=== PATIENT | male | born 1995 | race Two or more races ===

== ENCOUNTER 2021-10-29 23:37 | Emergency (ER) | payer MEDICAID, OTHER ==
[~2021-10-29] VITALS: Ht 172.7 cm; Wt 81.8 kg
[2021-10-30] MEDS ORDERED: SODIUM CHLORIDE 0.9% 1,000 ML IV ONE (00:15)
[2021-10-30] MEDS ORDERED: PERTUSS(ACELL),DIPH,TET VAC/PF 0.5 ML SYRINGE IM. ONE (00:15)
[2021-10-30] MEDS ORDERED: LIDOCAINE 1%/EPI 1:100,000 30 ML VIAL SQ ONE (00:15)
[2021-10-30 00:40] LABS: BASOPHILS % (AUTO) 0.3 % (0.0-2.0); HEMATOCRIT 48.1 % (41-53); HEMOGLOBIN 16.5 g/dL (13.5-17.5); LYMPHOCYTES # (AUTO) 3.3 K/uL (1.0-4.8); LYMPHOCYTES % (AUTO) 23.8 % (22.0-44.0); MEAN CORPUSCULAR HEMOGLOBIN 30.2 pg (26.0-34.0); MEAN CORPUSCULAR HGB CONC 34.3 G/dL (31.0-37.0); MEAN CORPUSCULAR VOLUME 88 fL (80-100); MONOCYTES # (AUTO) 0.8 K/uL (0.1-1.0); MONOCYTES % (AUTO) 5.9 % (2.0-9.0); PLATELET COUNT (AUTO) 396 K/uL (150-450); RED BLOOD CELL COUNT(AUTO) 5.46 MIL/uL (4.50-5.90); RED CELL DISTRIBUTION WIDTH 12.6 % (11.5-14.5)
[2021-10-30 00:49] LABS: ANION GAP 6 mmol/L (8-16); CALCIUM, TOTAL 8.7 mg/dL (8.8-10.5); CARBON DIOXIDE 32 mmol/L (22-29); CHLORIDE 103 mmol/L (98-107); CREATININE 0.92 mg/dL (0.60-1.30); GLOMERULAR FILTR. RATE CALC > 60 mL/min (>60); GLUCOSE,RANDOM 92 mg/dL (70-110); POTASSIUM 3.3 mmol/L (3.5-5.1); SODIUM SERUM 141 mmol/L (136-145); UREA NITROGEN, BLOOD 12 mg/dL (7-18)
[2021-10-30 00:56] LABS: ALANINE AMINOTRANSFERASE 47 U/L (12-78); ALBUMIN 4.4 g/dL (3.4-5.0); ALKALINE PHOSPHATASE 79 U/L (46-116); ASPARTATE AMINOTRANSFERASE 31 U/L (15-37); BILIRUBIN,TOTAL 0.3 mg/dL (0.1-1.0); TOTAL PROTEIN, SERUM 8.1 g/dL (6.4-8.2)
[2021-10-30] MEDS ORDERED: CEPH-558 PO (02:27)
[2021-10-30 04:00] VITALS: BP 109/80
== END 2021-10-30 05:31 | disposition home or self-care (01) ==
LOC: EMS 23:38
DX: S01.112A Laceration without foreign body of left eyelid and periocular area, initial encounter (principal); S09.90XA Unspecified injury of head, initial encounter; W18.39XA Other fall on same level, initial encounter; Y93.89 Activity, other specified; Y92.89 Other specified places as the place of occurrence of the external cause; Y99.8 Other external cause status
CPT/HCPCS: 12013; 36415; 70450; 72125; 80053; 85025; 90471; 90715; 96360; 99284; G0480; J3490; J7030

== ENCOUNTER 2021-11-10 14:47 | Emergency (ER) | payer MEDICAID ==
[~2021-11-10] VITALS: Ht 175.3 cm; Wt 84.1 kg
[~2021-11-10 14:47] MED LIST: CEPH-558 PO
[2021-11-10 15:21] VITALS: BP 126/84
== END 2021-11-10 15:27 | disposition home or self-care (01) ==
LOC: EMS 14:49
DX: S01.111D Laceration without foreign body of right eyelid and periocular area, subsequent encounter (principal); Z48.02 Encounter for removal of sutures; W45.8XXD Other foreign body or object entering through skin, subsequent encounter
CPT/HCPCS: 99281; Z7502

== ENCOUNTER 2021-12-02 15:27 | Emergency (ER) | payer MEDICAID ==
[~2021-12-02] VITALS: Ht 172.7 cm; Wt 81.0 kg
[2021-12-02 15:28] VITALS: BP 123/68
[2021-12-02] MEDS ORDERED: BACITRACIN 0.9 GM PACKET OINTMENT TP ONE (16:00)
[2021-12-02] MEDS ORDERED: PERTUSS(ACELL),DIPH,TET VAC/PF 0.5 ML SYRINGE IM. ONE (16:00)
[2021-12-02] MEDS ORDERED: LIDOCAINE 1% 10 ML VIAL SQ ONE (16:00)
== END 2021-12-02 16:51 | disposition home or self-care (01) ==
LOC: EMS 15:29
DX: S61.216A Laceration without foreign body of right little finger without damage to nail, initial encounter (principal); F10.20 Alcohol dependence, uncomplicated; W26.9XXA Contact with unspecified sharp object(s), initial encounter; Y93.89 Activity, other specified; Y92.89 Other specified places as the place of occurrence of the external cause; Y99.8 Other external cause status
CPT/HCPCS: 12001; 90471; 90715; 99283; J3490

== ENCOUNTER 2021-12-14 16:54 | Emergency (ER) | payer MEDICAID ==
[~2021-12-14] VITALS: Ht 172.7 cm; Wt 81.8 kg
[2021-12-14 17:27] VITALS: BP 122/73
== END 2021-12-14 18:01 | disposition home or self-care (01) ==
LOC: EMS 17:00
DX: S61.216D Laceration without foreign body of right little finger without damage to nail, subsequent encounter (principal); X58.XXXD Exposure to other specified factors, subsequent encounter
CPT/HCPCS: 99281; Z7502

== ENCOUNTER 2022-08-15 11:42 | Emergency (ER) | payer MEDICAID, OTHER ==
[~2022-08-15] VITALS: Ht 175.3 cm; Wt 84.5 kg
[2022-08-15] MEDS ORDERED: LIDOCAINE 1% 10 ML VIAL ID ONE (13:00)
[2022-08-15 13:51] VITALS: BP 125/68
== END 2022-08-15 13:52 | disposition home or self-care (01) ==
LOC: EMS 11:46
DX: S71.111A Laceration without foreign body, right thigh, initial encounter (principal); F12.90 Cannabis use, unspecified, uncomplicated; X58.XXXA Exposure to other specified factors, initial encounter; Y93.89 Activity, other specified; Y92.89 Other specified places as the place of occurrence of the external cause; Y99.8 Other external cause status
CPT/HCPCS: 99282; 12002; J3490

== ENCOUNTER 2022-08-24 09:06 | Emergency (ER) | payer OTHER ==
[~2022-08-24] VITALS: Ht 175.3 cm; Wt 81.8 kg
[2022-08-24 09:28] VITALS: BP 121/73
[2022-08-24] MEDS ORDERED: BACITRACIN 0.9 GM PACKET OINTMENT TP ONE (11:00)
== END 2022-08-24 12:58 | disposition home or self-care (01) ==
LOC: EMS 09:32
DX: T14.8XXA Other injury of unspecified body region, initial encounter (principal); F12.90 Cannabis use, unspecified, uncomplicated; Z48.02 Encounter for removal of sutures
CPT/HCPCS: 99281; Z7502; Z7610

== ENCOUNTER 2023-08-23 11:55 | Emergency (ER) | payer OTHER ==
[~2023-08-23] VITALS: Ht 175.3 cm; Wt 93.2 kg
[2023-08-23 12:06] VITALS: TEMP 98.3
[2023-08-23] MEDS ORDERED: IBUP-1554 PO (14:54)
[2023-08-23] MEDS ORDERED: ACET-2080 PO (14:54)
[2023-08-23] MEDS: GENTAMICIN SULFATE 0.3% OPHTHALMIC SOLUTION 5 ML OU ONE (15:12)
[2023-08-23 15:20] VITALS: BP 121/70; PULSE 85; RESP 16
== END 2023-08-23 15:23 | disposition home or self-care (01) ==
LOC: EMS 11:55
DX: H10.9 Unspecified conjunctivitis (principal); F12.90 Cannabis use, unspecified, uncomplicated
CPT/HCPCS: 99283

== ENCOUNTER 2025-05-08 17:30 | Emergency (ER) | payer OTHER ==
[~2025-05-08] VITALS: Ht 175.3 cm; Wt 95.5 kg
[~2025-05-08 17:30] MED LIST changes: +ACET-2080 PO; -CEPH-558 PO; +IBUP-1554 PO
[2025-05-08 18:53] LABS: APPEARANCE,URINE CLEAR (CLEAR); GLUCOSE, URINE (UA) NEGATIVE (NEGATIVE); LEUKOCYTE ESTERASE ,URINE TRACE (NEGATIVE); NITRATE,URINE NEGATIVE (NEGATIVE); OCCULT BLOOD,URINE LARGE (NEGATIVE); SPECIFIC GRAVITIY, URINE 1.014 (1.003-1.030)
[2025-05-08 19:02] LABS: SQUAMOUS EPITHELIAL CELL,UR Rare /LPF (None Seen)
[2025-05-08 23:55] LABS: RED CELL DISTRIBUTION WIDTH 13.2 % (11.5-14.5)
[2025-05-08] MEDS ORDERED: IBUP-1506 PO (23:57)
[2025-05-08] MEDS ORDERED: HYDR-4072 PO (23:57)
[2025-05-08] MEDS ORDERED: TAMS0.4C94 PO (23:57)
[2025-05-08] MEDS ORDERED: ONDA-104 PO (23:57)
[2025-05-09 00:01] LABS: PLATELET COUNT (AUTO) 380 K/uL (150-450); RED BLOOD CELL COUNT(AUTO) 5.37 MIL/uL (4.50-5.90); WHITE BLOOD COUNT (AUTO) 13.2 K/uL (4.5-11.0)
[2025-05-09 00:12] LABS: CALCIUM, TOTAL 9.8 mg/dL (8.8-10.5); CREATININE 1.06 mg/dL (0.60-1.30); GLOMERULAR FILTR. RATE CALC > 60 mL/min (>60); GLUCOSE,RANDOM 99 mg/dL (70-110); SODIUM SERUM 140 mmol/L (136-145); UREA NITROGEN, BLOOD 14 mg/dL (7-18)
[2025-05-09 00:25] VITALS: BP 133/58; PULSE 70; RESP 16; TEMP 98.005280; O2SAT 100
[2025-05-09] MEDS: TAMSULOSIN HCL 0.4 MG CAPSULE PO ONE (00:27)
[2025-05-09] MEDS: IBUPROFEN 400 MG TABLET PO ONE (00:27)
[2025-05-09] MEDS: ACETAMINOPHEN 500 MG TABLET PO ONE (00:27)
== END 2025-05-09 00:33 | disposition home or self-care (01) ==
LOC: EMS 17:30
DX: R10.A1 Flank pain, right side (principal); F12.90 Cannabis use, unspecified, uncomplicated; I10 Essential (primary) hypertension; Z87.442 Personal history of urinary calculi; Z79.899 Other long term (current) drug therapy
CPT/HCPCS: 80048; 81001; 85025; 99284